=== PATIENT | female | born 1930 | race Caucasian/White ===

== ENCOUNTER 2017-09-26 18:59 | Emergency (ER) | payer OTHER ==
[2017-09-27] MEDS ORDERED: ENALAPRIL MALEA10 MG (01:09)
[2017-09-27] MEDS ORDERED: ASPIR 8181 MG (01:09)
== END 2017-09-26 21:13 | disposition left against medical advice (07) ==
LOC: ED 18:59
DX: Z53.21 Procedure and treatment not carried out due to patient leaving prior to being seen by health care provider (principal)

== ENCOUNTER 2017-09-26 22:48 | Inpatient (IN) | payer OTHER, MEDICARE ==
[~2017-09-26] VITALS: Ht 144.8 cm; Wt 56.0 kg
[2017-09-26 23:56] LABS: PLATELET COUNT 277 x10^3mcL (130-400)
[2017-09-26 23:58] LABS: BASOPHIL % 3.2 % (0-2); RED CELL DISTRIBUTION WIDTH 17.2 % (11.5-14.5)
[2017-09-27] VITALS (7 sets, daily range): BP systolic 95–139; BP diastolic 42–63
[2017-09-27] LABS: rbc morphology (normal/abnorm) ABNORMAL (NORMAL)
[2017-09-27 00:05] LABS: CARBON DIOXIDE 24.5 mmol/L (21-32); CHLORIDE SERUM 104 mmol/L (98-107); CREATININE SERUM 0.9 mg/dL (0.6-1.0); GLUCOSE SERUM 124 mg/dL (74-106); POTASSIUM SERUM 3.8 mmol/L (3.5-5.1); SODIUM SERUM 136 mmol/L (136-145)
[2017-09-27 00:10] LABS: ALKALINE PHOSPHATASE 52 U/L (46-116); ALT/SGPT 12 U/L (14-59); AST/SGOT 10 U/L (15-37); BILIRUBIN TOTAL 0.4 mg/dL (0.20-1.00); TOTAL PROTEIN, SERUM 6.6 g/dL (6.4-8.2)
[2017-09-27 00:18] LABS: ALBUMIN 2.9 g/dL (3.4-5.0)
[2017-09-27 01:05] LABS: UA SPECIFIC GRAVITY 1.015 (1.005-1.035); microscopic required? YES; urine erythrocyte NEGATIVE (NEGATIVE)
[2017-09-27] MEDS ORDERED: ENALAPRIL MALEA10 MG (01:09)
[2017-09-27] MEDS ORDERED: ASPIR 8181 MG (01:09)
[2017-09-27 03:01] LABS: T3 TOTAL 0.66 ng/mL
[2017-09-27 03:07] LABS: CHOLESTEROL/HDL RATIO 3.8; MAGNESIUM 2.1 mg/dL (1.8-2.4); PHOSPHOROUS 2.8 mg/dL (2.5-4.9)
[2017-09-27 03:14] LABS: TOTAL IRON BINDING CAPACITY 308 ug/dL (250-450)
[2017-09-27 03:20] LABS: FREE T4 0.87 ng/dL (0.76-1.46); FREE THYROXINE INDEX 1.6 ug/dL (1.4-4.5); T4(THYROXINE) 4.7 ug/dL (4.7-13.3)
[2017-09-27 03:32] LABS: IRON 12 ug/dL (50-170)
[2017-09-27 03:50] LABS: RED BLOOD CELLS 2.35 M/mm3 (4.10-5.10)
[2017-09-27 07:39] LABS: BASOPHIL % 0.4 % (0-2); PLATELET COUNT 219 x10^3mcL (130-400)
[2017-09-27 07:44] LABS: RED CELL DISTRIBUTION WIDTH 16.1 % (11.5-14.5)
[2017-09-27 07:50] LABS: CALCIUM 7.8 mg/dL (8.5-10.1); CARBON DIOXIDE 20.1 mmol/L (21-32); CHLORIDE SERUM 109 mmol/L (98-107); CREATININE SERUM 0.9 mg/dL (0.6-1.0); GLUCOSE SERUM 109 mg/dL (74-106); PHOSPHOROUS 2.9 mg/dL (2.5-4.9); POTASSIUM SERUM 3.8 mmol/L (3.5-5.1); SODIUM SERUM 139 mmol/L (136-145)
[2017-09-28] VITALS (8 sets, daily range): BP systolic 101–125; BP diastolic 41–55
[2017-09-28 07:46] LABS: CALCIUM 7.6 mg/dL (8.5-10.1); CARBON DIOXIDE 19.7 mmol/L (21-32); CHLORIDE SERUM 114 mmol/L (98-107); CREATININE SERUM 0.6 mg/dL (0.6-1.0); GLUCOSE SERUM 110 mg/dL (74-106); MAGNESIUM 1.9 mg/dL (1.8-2.4); PHOSPHOROUS 2.7 mg/dL (2.5-4.9); POTASSIUM SERUM 3.4 mmol/L (3.5-5.1); SODIUM SERUM 143 mmol/L (136-145)
[2017-09-28 07:47] LABS: BASOPHIL % 0.4 % (0-2); PLATELET COUNT 235 x10^3mcL (130-400)
[2017-09-28 08:08] LABS: RED CELL DISTRIBUTION WIDTH 16.6 % (11.5-14.5)
[2017-09-28 08:40] LABS: rbc morphology (normal/abnorm) ABNORMAL (NORMAL)
[2017-09-29] VITALS (7 sets, daily range): BP systolic 120–139; BP diastolic 59–88
[2017-09-29 00:01] LABS: BASOPHIL % 1.1 % (0-2); PLATELET COUNT 233 x10^3mcL (130-400)
[2017-09-29 00:02] LABS: RED CELL DISTRIBUTION WIDTH 17.2 % (11.5-14.5)
[2017-09-29 00:03] LABS: rbc morphology (normal/abnorm) ABNORMAL (NORMAL)
[2017-09-29 08:11] LABS: CALCIUM 7.9 mg/dL (8.5-10.1); CARBON DIOXIDE 20.7 mmol/L (21-32); CHLORIDE SERUM 113 mmol/L (98-107); CREATININE SERUM 0.7 mg/dL (0.6-1.0); GLUCOSE SERUM 94 mg/dL (74-106); MAGNESIUM 2.1 mg/dL (1.8-2.4); PHOSPHOROUS 2.4 mg/dL (2.5-4.9); POTASSIUM SERUM 3.6 mmol/L (3.5-5.1); SODIUM SERUM 142 mmol/L (136-145)
[2017-09-29 08:17] LABS: BASOPHIL % 0.4 % (0-2); PLATELET COUNT 255 x10^3mcL (130-400)
[2017-09-29 08:19] LABS: RED CELL DISTRIBUTION WIDTH 16.9 % (11.5-14.5)
[2017-09-29] MEDS ORDERED: MIRUD PO (12:33)
[2017-09-29] MEDS ORDERED: METP PO (12:33)
[2017-09-29] MEDS ORDERED: FERG PO (12:33)
== END 2017-09-29 20:50 | disposition home or self-care (01) | DRG 253 ==
LOC: ED 22:48 → DU 09-27 00:43
PROVIDERS: Emergency Medicine; Family Medicine; Internal Medicine Gastroenterology
PROC: 0DB98ZZ Excision of Duodenum, Via Natural or Artificial Opening Endoscopic (ICD-10-PCS; principal; 2017-09-27 08:30)
PROC: 30233N1 Transfusion of Nonautologous Red Blood Cells into Peripheral Vein, Percutaneous Approach (ICD-10-PCS; 2017-09-27 08:30)
PROC: 0DJD8ZZ Inspection of Lower Intestinal Tract, Via Natural or Artificial Opening Endoscopic (ICD-10-PCS; 2017-09-28)
DX: K55.21 Angiodysplasia of colon with hemorrhage (principal); N17.0 Acute kidney failure with tubular necrosis; K57.91 Diverticulosis of intestine, part unspecified, without perforation or abscess with bleeding; M17.11 Unilateral primary osteoarthritis, right knee; I10 Essential (primary) hypertension; F17.210 Nicotine dependence, cigarettes, uncomplicated; E44.0 Moderate protein-calorie malnutrition; D64.9 Anemia, unspecified; Z79.82 Long term (current) use of aspirin; Z68.26 Body mass index [BMI] 26.0-26.9, adult; Z90.710 Acquired absence of both cervix and uterus; K44.9 Diaphragmatic hernia without obstruction or gangrene; K31.7 Polyp of stomach and duodenum; G90.9 Disorder of the autonomic nervous system, unspecified
CPT/HCPCS: 43235; 45378; 83880; 84439; 87804; J0696; J1200; J1610; J2250; J2310; J2916; J3010; J3490; J7030; J7040; J7050; P9016; Q0092; Q0163

== ENCOUNTER 2017-10-03 10:00 | Emergency (ER) | payer MEDICARE, OTHER ==
[~2017-10-03] VITALS: Ht 157.5 cm; Wt 54.4 kg
[~2017-10-03 10:00] MED LIST: ASPIR 8181 MG; ENALAPRIL MALEA10 MG; FERG PO; METP PO; MIRUD PO
[2017-10-03 10:30] VITALS: Ht 157.5 cm; Wt 54.4 kg
== END 2017-10-03 11:47 | disposition left against medical advice (07) ==
LOC: ED 10:00
DX: Z53.21 Procedure and treatment not carried out due to patient leaving prior to being seen by health care provider (principal)